=== PATIENT | male | born 1995 | race American Indian/Alaskan Native ===

== ENCOUNTER 2017-01-20 19:21 | Emergency (ER) | payer OTHER ==
[~2017-01-20] VITALS: Ht 172.7 cm; Wt 77.1 kg
[~2017-01-20 19:21] MED LIST: PERCOCET 7.5-31 EACH PO
[2017-01-20] MEDS ORDERED: VENTOLIN HFA18 GM INH (20:04)
[2017-01-20] MEDS ORDERED: ROBITUSSIN COU237 M2 PO (20:05)
== END 2017-01-20 22:30 | disposition home or self-care (01) ==
LOC: ED 19:21
DX: J20.9 Acute bronchitis, unspecified (principal); F17.200 Nicotine dependence, unspecified, uncomplicated; Z79.899 Other long term (current) drug therapy
CPT/HCPCS: 71020; 99283

== ENCOUNTER 2018-03-29 21:43 | Emergency (ER) | payer OTHER ==
[~2018-03-29] VITALS: Ht 177.8 cm; Wt 81.7 kg
[~2018-03-29 21:43] MED LIST changes: +ROBITUSSIN COU237 M2 PO; +VENTOLIN HFA18 GM INH
--- OUTSIDE RECORDS SUMMARY | 2018-03-29 21:48 | XMS ---
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 EMoody VISIT COUNT (12 MO.) 1 NORMA Coffey TOTAL 1 NOTE: Visits indicate total known visits. ED/UCC VISIT TRACKING (12 MO.) 03/29/2018 21:[address] [facility] TYPE: Emergency COMPLAINT: - [facility] INPATIENT VISIT TRACKING (12 MO.) No inpatient visits to display in this time frame [email or web address]
== END 2018-03-30 01:21 | disposition home or self-care (01) ==
LOC: ED 21:43
DX: Z00.8 Encounter for other general examination (principal); F17.200 Nicotine dependence, unspecified, uncomplicated
CPT/HCPCS: 80053; 80176; 81001; 85025; 99283; G0480